=== PATIENT | female | born 1980 | race African-American/Black ===

== ENCOUNTER 2018-01-13 09:38 | Emergency (ER) | payer SELFPAY ==
[~2018-01-13] VITALS: Ht 160 cm; Wt 64.0 kg
[2018-01-13] MEDS ORDERED: ONDANSETRON HCL 4MG/2ML VIAL IV STA (10:31)
[2018-01-13] MEDS ORDERED: SODIUM CHLORIDE 0.9% 1,000 ML IV ONE (10:31)
[2018-01-13] MEDS ORDERED: KETOROLAC 30MG/ML VIAL IV STA (10:31)
[2018-01-13 10:45] LABS: CLARITY URINE CLEAR (CLEAR); COLOR URINE YELLOW (YELLOW); KETONES URINE NEGATIVE (NEGATIVE); LEUKOCYTE ESTERASE URINE NEGATIVE (NEGATIVE); NITRITE URINE NEGATIVE (NEGATIVE); OCCULT BLOOD URINE 1+ (NEGATIVE); PH URINE 5.5 (4.5-8.0); PROTEIN URINE NEGATIVE (NEGATIVE); UROBILINOGEN URINE 0.2 E.U./dL (0.2-1.0)
[2018-01-13 10:56] LABS: BASOPHILS % 0.7 % (0.0-2.0); HEMOGLOBIN. 11.7 g/dL (12.0-16.0); LYMPHOCYTES % 36.4 % (20.0-50.0); MEAN CORPUSCULAR VOLUME 95.5 fL (81.0-99.0); MEAN PLATELET VOLUME 8.1 fl (7.4-10.4); MONOCYTES % 4.3 % (2.0-8.0); NEUTROPHILS % 53.6 % (40.0-76.0); PLATELET 252 x1000/uL (130-400); RED BLOOD CELL COUNT 3.66 mill/uL (4.2-5.4); RED CELL DISTRIBUTION WIDTH 13.2 % (11.6-14.6)
[2018-01-13 11:03] LABS: CHLORIDE 106 mEq/L (98-107)
[2018-01-13 13:10] VITALS: BP 99/64
== END 2018-01-13 13:15 | disposition home or self-care (01) ==
LOC: ER 12:33
DX: R55 Syncope and collapse (principal); R10.2 Pelvic and perineal pain; S01.511A Laceration without foreign body of lip, initial encounter; D64.9 Anemia, unspecified; Z90.49 Acquired absence of other specified parts of digestive tract; W18.11XA Fall from or off toilet without subsequent striking against object, initial encounter; Y93.89 Activity, other specified; Y92.012 Bathroom of single-family (private) house as the place of occurrence of the external cause
CPT/HCPCS: 36415; 80053; 81003; 81025; 85025; 93005; 96361; 96374; 96375; 99285; J1885; J2405; J7030; Z7610

== ENCOUNTER 2019-04-09 11:15 | Emergency (ER) | payer MEDICAID ==
[~2019-04-09] VITALS: Ht 152.4 cm; Wt 71.0 kg
[2019-04-09] MEDS ORDERED: HYDROCODONE/ACETAMINOPHEN 5/325MG TABLET PO ONE (13:15)
[2019-04-09 15:10] VITALS: BP 110/54
== END 2019-04-09 15:11 | disposition home or self-care (01) ==
LOC: ER 11:15
DX: M54.41 Lumbago with sciatica, right side (principal)
CPT/HCPCS: 93971; 99284

== ENCOUNTER 2019-07-02 11:05 | Emergency (ER) | payer MEDICAID ==
[~2019-07-02] VITALS: Ht 152.4 cm; Wt 64.0 kg
[2019-07-02] MEDS ORDERED: KETOROLAC 60MG/2ML VIAL IM ONE (12:15)
[2019-07-02 12:21] VITALS: BP 111/65
== END 2019-07-02 12:27 | disposition home or self-care (01) ==
LOC: ER 11:05
DX: S46.911A Strain of unspecified muscle, fascia and tendon at shoulder and upper arm level, right arm, initial encounter (principal); S86.811A Strain of other muscle(s) and tendon(s) at lower leg level, right leg, initial encounter; S39.012A Strain of muscle, fascia and tendon of lower back, initial encounter; V43.52XA Car driver injured in collision with other type car in traffic accident, initial encounter; Y93.89 Activity, other specified; Y92.410 Unspecified street and highway as the place of occurrence of the external cause
CPT/HCPCS: 96372; 99283; J1885

== ENCOUNTER 2020-11-03 13:33 | Emergency (ER) | payer MEDICAID ==
[~2020-11-03] VITALS: Ht 154.9 cm; Wt 70.0 kg
[2020-11-03] MEDS ORDERED: KETOROLAC 60MG/2ML VIAL IM ONE (14:30)
[2020-11-03 14:50] LABS: CLARITY URINE CLEAR (CLEAR); COLOR URINE YELLOW (YELLOW); KETONES URINE NEGATIVE (NEGATIVE); LEUKOCYTE ESTERASE URINE NEGATIVE (NEGATIVE); NITRITE URINE NEGATIVE (NEGATIVE); OCCULT BLOOD URINE 2+ (NEGATIVE); PROTEIN URINE NEGATIVE (NEGATIVE); SPECIFIC GRAVITY URINE 1.025 (1.005-1.030)
[2020-11-03 15:32] LABS: BASOPHILS % 0.6 % (0.0-2.0); EOSINOPHILS % 7.2 % (0.0-5.0); HEMATOCRIT. 37.2 % (36.0-48.0); HEMOGLOBIN. 12.5 g/dL (12.0-16.0); LYMPHOCYTES % 26.3 % (20.0-50.0); MEAN CORPUSCULAR HEMOGLOBIN 32.5 pg (28.0-32.0); MEAN CORPUSCULAR VOLUME 96.5 fL (81.0-99.0); MEAN PLATELET VOLUME 8.3 fl (7.4-10.4); MONOCYTES % 6.5 % (2.0-8.0); NEUTROPHILS % 59.4 % (40.0-76.0); PLATELET 322 x1000/uL (130-400); RED BLOOD CELL COUNT 3.85 mill/uL (4.2-5.4); RED CELL DISTRIBUTION WIDTH 14.2 % (11.6-14.6)
[2020-11-03 15:39] LABS: CHLORIDE 108 mEq/L (98-107)
[2020-11-03] MEDS ORDERED: METH-773 MT (16:44)
[2020-11-03] MEDS ORDERED: NAPR-681 MT (16:44)
[2020-11-03] MEDS ORDERED: METHOCARBAMOL 500MG TABLET PO ONE (16:45)
[2020-11-03 17:02] VITALS: BP 117/79
== END 2020-11-03 17:03 | disposition home or self-care (01) ==
LOC: ER 13:33
DX: S29.012A Strain of muscle and tendon of back wall of thorax, initial encounter (principal); Z90.49 Acquired absence of other specified parts of digestive tract; X50.1XXA Overexertion from prolonged static or awkward postures, initial encounter; Y93.89 Activity, other specified; Y92.018 Other place in single-family (private) house as the place of occurrence of the external cause
CPT/HCPCS: 36415; 74176; 80053; 81003; 81025; 85025; 96372; 99284; J1885

== ENCOUNTER 2024-03-10 10:41 | Inpatient (IN) | payer MEDICAID ==
[~2024-03-10] VITALS: Ht 152.4 cm; Wt 75.5 kg
[2024-03-10] MEDS: SODIUM CHLORIDE 0.9% 1,000 ML IV SCH (07:15)
[~2024-03-10 10:41] MED LIST: LEVO750T68 MT; METH-773 MT; NAPR-681 MT
[2024-03-10] MEDS ORDERED: KETOROLAC 30MG/ML VIAL IV STA (11:42)
[2024-03-10] MEDS ORDERED: ONDANSETRON HCL 4MG/2ML INJ IV STA (11:42)
[2024-03-10 11:54] LABS: HEMATOCRIT. 35.8 % (36.0-48.0); HEMOGLOBIN. 11.5 g/dL (12.0-16.0); MEAN CORPUSCULAR HEMOGLOBIN 31.2 pg (28.0-32.0); MEAN CORPUSCULAR VOLUME 97.4 fL (81.0-99.0); PLATELET 276 x1000/uL (130-400); RED BLOOD CELL COUNT 3.68 mill/uL (4.2-5.4); RED CELL DISTRIBUTION WIDTH 13.5 % (11.6-14.6); WHITE BLOOD COUNT 15.3 x1000/uL (4.5-11.0)
[2024-03-10 11:57] LABS: DIFFERENTIAL COMMENT 1
[2024-03-10 11:59] LABS: CHLORIDE 100 mEq/L (98-107); SODIUM 134 mEq/L (136-145)
[2024-03-10 12:00] LABS: CALCIUM 9.2 mg/dL (8.7-10.4); CARBON DIOXIDE 22 mEq/L (21-32)
[2024-03-10 12:05] LABS: CREATININE 0.8 mg/dL (0.6-1.0); GLUCOSE 96 mg/dL (70-105)
[2024-03-10 12:07] LABS: ALANINE AMINOTRANSFERASE 11 IU/L (10-49); ALBUMIN 4.6 g/dL (3.2-4.8); ASPARTATE AMINOTRANSFERASE 16 IU/L (<34); BILIRUBIN DIRECT 0.4 mg/dL (<=3.0); BILIRUBIN TOTAL 1.1 mg/dL (0.1-1.0)
[2024-03-10 12:11] LABS: UREA NITROGEN BLOOD < 5 mg/dL (9-23)
[2024-03-10 12:12] LABS: POTASSIUM 2.6 mEq/L (3.5-5.1)
[2024-03-10] MEDS ORDERED: KCL 10MEQ/50ML PREMIX 50 ML IV SCH (13:00)
[2024-03-10] MEDS: SODIUM CHLORIDE 0.9% 1,000 ML IV ONE (13:34)
[2024-03-10 13:37] LABS: CLARITY URINE TURBID (CLEAR); COLOR URINE YELLOW (YELLOW); GLUCOSE URINE NEGATIVE (NEGATIVE); KETONES URINE 3+ (NEGATIVE); LEUKOCYTE ESTERASE URINE 3+ (NEGATIVE); NITRITE URINE NEGATIVE (NEGATIVE); OCCULT BLOOD URINE 3+ (NEGATIVE); PROTEIN URINE 2+ (NEGATIVE); SPECIFIC GRAVITY URINE 1.014 (1.005-1.030)
[2024-03-10 14:03] LABS: SQUAMOUS EPITHELIAL CELL URINE 1+ /lpf (RARE/1+)
[2024-03-10 14:04] LABS: BACTERIA URINE 4+; WBC URINE TNTC /hpf (0-2)
[2024-03-10 14:22] LABS: PLATELET ESTIMATE NORMAL
[2024-03-10] MEDS: ONDANSETRON HCL 4MG/2ML INJ IV NR (14:45)
[2024-03-10] MEDS: KETOROLAC 30MG/ML VIAL IV NR (14:45)
[2024-03-10] MEDS ORDERED: IPRATROPIUM/ALBUTEROL 0.5-3(2.5)MG/3ML NEB HHN PRN (15:15)
[2024-03-10] MEDS ORDERED: MAGNESIUM/ALUMINUM HYDROXIDE/SIMETHICONE 30ML UDC PO PRN (15:15)
[2024-03-10] MEDS: POTASSIUM CHLORIDE 20MEQ TABLET SR PO NR (16:10)
[2024-03-10 16:12] LABS: INR 1.1; PROTHROMBIN TIME 12.3 sec (9.6-11.0)
[2024-03-10] MEDS ORDERED: POTASSIUM CHLORIDE 40 MEQ in DEXT 5% WATER 230 ML IV ONE (16:15)
[2024-03-10] MEDS: CEFTRIAXONE 1GM/50ML 50 ML IV NR (16:25)
[2024-03-10] MEDS: PANTOPRAZOLE SODIUM 40 MG/VIAL IV SCH (16:37)
[2024-03-10 18:00] LABS: CARBON DIOXIDE 23 mEq/L (21-32); CHLORIDE 104 mEq/L (98-107); HCG SCREEN NEGATIVE; SODIUM 133 mEq/L (136-145)
[2024-03-10 18:01] LABS: CALCIUM 8.2 mg/dL (8.7-10.4)
[2024-03-10 18:05] LABS: CREATININE 0.8 mg/dL (0.6-1.0); GLUCOSE 91 mg/dL (70-105); IRON 17 ug/dL (50-170)
[2024-03-10 18:08] LABS: PHOSPHORUS 3.2 mg/dL (2.5-4.9); TOTAL IRON BINDING CAPACITY 449 ug/dl (250-425)
[2024-03-10 18:11] LABS: UREA NITROGEN BLOOD < 5 mg/dL (9-23)
[2024-03-10] MEDS: SODIUM CHLORIDE 0.9% 1000ML BAG (SEPSIS BOLUS) IV ONE (18:17)
[2024-03-10] MEDS: KCL 20MEQ/100ML X 2 FOR TOTAL KCL 40MEQ/200ML IV SCH (18:18)
[2024-03-10 18:21] LABS: FERRITIN 59 ng/mL (10-291); FOLIC ACID (FOLATE) SERUM 17.66 ng/mL (>5.38); VITAMIN B12 SERUM 326 pg/mL (211-911)
[2024-03-10] MEDS: KETOROLAC 30MG/ML VIAL IV PRN (20:07)
[2024-03-10] MEDS: ACETAMINOPHEN 325MG TABLET PO PRN (20:07)
[2024-03-10] MEDS ORDERED: POTASSIUM CHLORIDE 20MEQ/PACKET PO NR (20:30)
[2024-03-10] MEDS: MAGNESIUM 4 G PREMIX 100 ML IV NR (21:41)
[2024-03-10 21:45] VITALS: BP 105/62; PULSE 99; RESP 18; TEMP 37.503; O2SAT 97
[2024-03-10 21:46] VITALS: BP 105/62; PULSE 99; RESP 18; TEMP 37.53
[2024-03-11] VITALS: BP 100/77; PULSE 82; RESP 20; TEMP 36.55848; O2SAT 98
[2024-03-11 00:53] LABS: CREATINE KINASE 78 IU/L (34-145)
[2024-03-11 04:00] VITALS: BP 124/52; PULSE 102; RESP 20; TEMP 36.55848; O2SAT 97
[2024-03-11 07:17] LABS: CHLORIDE 105 mEq/L (98-107)
[2024-03-11 07:18] LABS: CALCIUM 8.6 mg/dL (8.7-10.4); CARBON DIOXIDE 22 mEq/L (21-32); POTASSIUM 3.7 mEq/L (3.5-5.1); SODIUM 138 mEq/L (136-145)
[2024-03-11 07:23] LABS: CREATININE 0.9 mg/dL (0.6-1.0); GLUCOSE 109 mg/dL (70-105)
[2024-03-11 07:24] LABS: LDL CHOLESTEROL 63 mg/dL (5-100); T4 FREE 0.86 ng/dL (0.89-1.76); TRIGLYCERIDE 88 mg/dL (0-150); UREA NITROGEN BLOOD 6 mg/dL (9-23)
[2024-03-11 07:25] LABS: CHOLESTEROL 122 mg/dL (<200); CREATINE KINASE 78 IU/L (34-145); THYROID STIMULATING HORMONE 0.44 uIU/mL (0.55-4.78)
[2024-03-11 07:26] LABS: HDL CHOLESTEROL 38 mg/dL (>65); PHOSPHORUS 2.2 mg/dL (2.5-4.9)
[2024-03-11] MEDS: FERROUS SULFATE 325MG TABLET PO SCH (07:40)
[2024-03-11 07:44] LABS: HEMATOCRIT. 33.8 % (36.0-48.0); HEMOGLOBIN. 11.2 g/dL (12.0-16.0); MEAN CORPUSCULAR HEMOGLOBIN 31.9 pg (28.0-32.0); MEAN CORPUSCULAR VOLUME 96.5 fL (81.0-99.0); MEAN PLATELET VOLUME 9.1 fl (7.4-10.4); PLATELET 300 x1000/uL (130-400); RED BLOOD CELL COUNT 3.51 mill/uL (4.2-5.4); RED CELL DISTRIBUTION WIDTH 13.9 % (11.6-14.6); WHITE BLOOD COUNT 21.2 x1000/uL (4.5-11.0)
[2024-03-11 07:52] LABS: DIFFERENTIAL COMMENT 1
[2024-03-11 08:00] VITALS: BP 131/72; PULSE 102; RESP 20; TEMP 36.44736; O2SAT 100
[2024-03-11 12:00] VITALS: BP 131/72; PULSE 81; RESP 20; TEMP 36.55848; O2SAT 100
[2024-03-11] MEDS: CEFTRIAXONE 2GM/50ML 50 ML IV SCH (15:37)
[2024-03-11 16:00] VITALS: BP 105/63; PULSE 86; RESP 20; TEMP 36.72516; O2SAT 99
[2024-03-11 20:00] VITALS: BP 107/58; PULSE 82; RESP 20; TEMP 37.503; O2SAT 97
[2024-03-11] MEDS: HYDROCODONE/ACETAMINOPHEN 5/325MG TABLET PO NR (21:40)
[2024-03-11 22:26] LABS: PLATELET ESTIMATE NORMAL
[2024-03-12] VITALS: BP 101/59; PULSE 90; RESP 18; TEMP 35.66952; O2SAT 100
[2024-03-12 04:00] VITALS: BP 103/69; PULSE 76; RESP 18; TEMP 36.50292; O2SAT 100
[2024-03-12 05:39] LABS: CHLORIDE 107 mEq/L (98-107); POTASSIUM 3.5 mEq/L (3.5-5.1); SODIUM 135 mEq/L (136-145)
[2024-03-12 05:40] LABS: CALCIUM 7.7 mg/dL (8.7-10.4); CARBON DIOXIDE 21 mEq/L (21-32)
[2024-03-12 05:45] LABS: CREATININE 0.7 mg/dL (0.6-1.0); GLUCOSE 95 mg/dL (70-105); UREA NITROGEN BLOOD 7 mg/dL (9-23)
[2024-03-12 05:47] LABS: PHOSPHORUS 2.2 mg/dL (2.5-4.9)
[2024-03-12 05:51] LABS: HEMATOCRIT 25.2 % (36.0-48.0); HEMOGLOBIN 8.2 g/dL (12.0-16.0); MEAN CORPUSCULAR HEMOGLOBIN 32.1 pg (28.0-32.0); MEAN CORPUSCULAR HGB CONC 32.6 g/dL (31.0-37.0); MEAN CORPUSCULAR VOLUME 98.5 fL (81.0-99.0); PLATELET 264 x1000/uL (130-400); RED BLOOD CELL COUNT 2.56 mill/uL (4.2-5.4); RED CELL DISTRIBUTION WIDTH 13.6 % (11.6-14.6); WHITE BLOOD COUNT 14.5 x1000/uL (4.5-11.0)
[2024-03-12 08:00] VITALS: BP 104/66; PULSE 83; RESP 18; TEMP 36.16956; O2SAT 100
[2024-03-12 12:00] VITALS: BP 106/61; PULSE 79; RESP 18; TEMP 36.50292; O2SAT 98
[2024-03-12 16:00] VITALS: BP 97/58; PULSE 78; RESP 18; TEMP 36.55848; O2SAT 97
[2024-03-12] MEDS: ONDANSETRON HCL 4MG/2ML INJ IV PRN (17:52)
[2024-03-12 19:44] LABS: BASOPHILS % 0.4 % (0.0-2.0); EOSINOPHILS % 1.3 % (0.0-5.0); HEMATOCRIT. 32.1 % (36.0-48.0); HEMOGLOBIN. 10.3 g/dL (12.0-16.0); MEAN CORPUSCULAR HEMOGLOBIN 31.2 pg (28.0-32.0); MEAN CORPUSCULAR HGB CONC 32.2 g/dL (31.0-37.0); MEAN PLATELET VOLUME 9.1 fl (7.4-10.4); MONOCYTES % 5.4 % (2.0-8.0); NEUTROPHILS % 80.9 % (40.0-76.0); PLATELET 249 x1000/uL (130-400); RED BLOOD CELL COUNT 3.31 mill/uL (4.2-5.4); RED CELL DISTRIBUTION WIDTH 14.1 % (11.6-14.6); WHITE BLOOD COUNT 11.9 x1000/uL (4.5-11.0)
[2024-03-12 20:01] LABS: CHLORIDE 107 mEq/L (98-107); POTASSIUM 3.3 mEq/L (3.5-5.1); SODIUM 135 mEq/L (136-145)
[2024-03-12 20:02] LABS: CALCIUM 8.1 mg/dL (8.7-10.4); CARBON DIOXIDE 21 mEq/L (21-32)
[2024-03-12 20:07] LABS: CREATININE 0.6 mg/dL (0.6-1.0); GLUCOSE 87 mg/dL (70-105); UREA NITROGEN BLOOD 5 mg/dL (9-23)
[2024-03-12 20:09] LABS: ALANINE AMINOTRANSFERASE 9 IU/L (10-49); ALBUMIN 3.7 g/dL (3.2-4.8); ASPARTATE AMINOTRANSFERASE 13 IU/L (<34); BILIRUBIN TOTAL 0.4 mg/dL (0.1-1.0); PROTEIN TOTAL 6.5 g/dL (6.0-8.3)
[2024-03-12] MEDS: KETOROLAC 15MG/ML VIAL IV PRN (20:58)
[2024-03-13 06:08] LABS: CALCIUM 7.7 mg/dL (8.7-10.4); CARBON DIOXIDE 20 mEq/L (21-32); CHLORIDE 108 mEq/L (98-107); SODIUM 137 mEq/L (136-145)
[2024-03-13 06:13] LABS: CREATININE 0.6 mg/dL (0.6-1.0); GLUCOSE 78 mg/dL (70-105)
[2024-03-13 06:15] LABS: UREA NITROGEN BLOOD 7 mg/dL (9-23)
[2024-03-13 06:20] LABS: HEMATOCRIT 28.3 % (36.0-48.0); HEMOGLOBIN 9.2 g/dL (12.0-16.0); MEAN CORPUSCULAR HEMOGLOBIN 31.5 pg (28.0-32.0); MEAN CORPUSCULAR HGB CONC 32.7 g/dL (31.0-37.0); MEAN CORPUSCULAR VOLUME 96.3 fL (81.0-99.0); PLATELET 243 x1000/uL (130-400); RED BLOOD CELL COUNT 2.93 mill/uL (4.2-5.4); RED CELL DISTRIBUTION WIDTH 14.1 % (11.6-14.6); WHITE BLOOD COUNT 9.9 x1000/uL (4.5-11.0)
[2024-03-13 07:56] VITALS: BP 110/73; PULSE 79; RESP 20; TEMP 36.28068; O2SAT 98
[2024-03-13 09:37] LABS: THYROID STIMULATING HORMONE 0.86 uIU/mL (0.55-4.78)
[2024-03-13] MEDS: POTASSIUM-SODIUM PHOSPHATE POWDER PACKET PO NR (10:07)
[2024-03-13] MEDS: KCL 20MEQ/100ML PREMIX 100 ML IV SCH (10:07)
[2024-03-13] MEDS ORDERED: CIPR500S3 MT (10:54)
[2024-03-13 12:00] VITALS: BP 99/66; PULSE 73; RESP 18; TEMP 36.72516; O2SAT 98
[2024-03-13 14:33] VITALS: BP 116/78; PULSE 88; TEMP 97.8; O2SAT 98
[2024-03-13 16:00] VITALS: BP 102/57; PULSE 77; RESP 20; TEMP 36.61404; O2SAT 97
[2024-03-13] MEDS ORDERED: POTASSIUM CHLORIDE 20MEQ/PACKET PO NR (16:30)
== END 2024-03-13 18:35 | disposition home or self-care (01) | DRG 720 ==
LOC: ER 10:41 → 5WST 14:04 → EDBEDREQ 14:08 → EDBEDREQTM 14:08 → 8WST 20:59
PROVIDERS: ADMIT Internal Medicine; ATTEND Internal Medicine
DX: A41.9 Sepsis, unspecified organism (principal); N12 Tubulo-interstitial nephritis, not specified as acute or chronic; E87.6 Hypokalemia; E78.5 Hyperlipidemia, unspecified; N39.0 Urinary tract infection, site not specified; D64.9 Anemia, unspecified; E80.6 Other disorders of bilirubin metabolism; N28.81 Hypertrophy of kidney; Z90.49 Acquired absence of other specified parts of digestive tract; Z79.899 Other long term (current) drug therapy
CPT/HCPCS: 36415; 71045; 74176; 74177; 76705; 80048; 80053; 80061; 80076; 81003; 82550; 82607; 82728; 82746; 83540; 83550; 83605; 83735; 84100; 84145; 84439; 84443; 84481; 84703; 85025; 85027; 87077; 87186; 93005; 99285; C1893; J0696; J1885; J2405; J2470; J3475; J3480; J7030

== ENCOUNTER 2024-07-10 12:52 | Emergency (ER) | payer MEDICAID ==
[~2024-07-10] VITALS: Ht 154.9 cm; Wt 68.0 kg
[~2024-07-10 12:52] MED LIST changes: +CIPR500S3 MT; -LEVO750T68 MT; -METH-773 MT
[2024-07-10 13:03] VITALS: BP 115/86; RESP 18; O2SAT 100
[2024-07-10 13:07] VITALS: PULSE 105; O2SAT 100
[2024-07-10 14:00] VITALS: TEMP 98.6
[2024-07-10] MEDS: ACETAMINOPHEN 325MG TABLET PO ONE (14:00)
[2024-07-10] MEDS ORDERED: D-ME473S50 PO (15:31)
[2024-07-10] MEDS ORDERED: ACET-3800 MT (15:31)
== END 2024-07-10 16:18 | disposition home or self-care (01) ==
LOC: ER 12:52
DX: J06.9 Acute upper respiratory infection, unspecified (principal); Z98.890 Other specified postprocedural states; Z20.822 Contact with and (suspected) exposure to COVID-19
CPT/HCPCS: 87426; 87804; 99283

== ENCOUNTER 2024-09-07 01:42 | Emergency (ER) | payer MEDICAID ==
[~2024-09-07] VITALS: Ht 154.9 cm; Wt 68.0 kg
[~2024-09-07 01:42] MED LIST changes: +ACET-3800 MT; +D-ME473S50 PO
[2024-09-07 02:13] VITALS: O2SAT 99
[2024-09-07 02:15] VITALS: BP 121/76; PULSE 60; RESP 18; TEMP 36.9; O2SAT 99
[2024-09-07] MEDS: MECLIZINE 25MG TABLET PO ONE (02:43)
[2024-09-07] MEDS: ONDANSETRON HCL 4MG TABLET PO ONE (02:43)
[2024-09-07 02:47] LABS: BASOPHILS % 0.5 % (0.0-2.0); EOSINOPHILS % 0.7 % (0.0-5.0); HEMATOCRIT. 38.9 % (36.0-48.0); HEMOGLOBIN. 12.9 g/dL (12.0-16.0); LYMPHOCYTES % 19.3 % (20.0-50.0); MEAN CORPUSCULAR HEMOGLOBIN 31.9 pg (28.0-32.0); MEAN CORPUSCULAR HGB CONC 33.2 g/dL (31.0-37.0); MEAN CORPUSCULAR VOLUME 96.1 fL (81.0-99.0); MONOCYTES % 3.2 % (2.0-8.0); NEUTROPHILS % 76.3 % (40.0-76.0); RED BLOOD CELL COUNT 4.05 mill/uL (4.2-5.4); RED CELL DISTRIBUTION WIDTH 14.6 % (11.6-14.6); WHITE BLOOD COUNT 8.8 x1000/uL (4.5-11.0)
[2024-09-07 02:53] LABS: DIFFERENTIAL COMMENT 1
[2024-09-07 03:14] LABS: CHLORIDE 109 mEq/L (98-107); POTASSIUM 3.6 mEq/L (3.5-5.1); SODIUM 144 mEq/L (136-145)
[2024-09-07 03:15] LABS: CALCIUM 9.3 mg/dL (8.7-10.4); CARBON DIOXIDE 25 mEq/L (21-32)
[2024-09-07 03:20] LABS: CREATININE 0.8 mg/dL (0.6-1.0); GLUCOSE 103 mg/dL (70-105); UREA NITROGEN BLOOD 7 mg/dL (9-23)
[2024-09-07 03:22] LABS: ALANINE AMINOTRANSFERASE 9 IU/L (10-49); ALBUMIN 4.5 g/dL (3.2-4.8); ASPARTATE AMINOTRANSFERASE 17 IU/L (<34); BILIRUBIN DIRECT 0.1 mg/dL (<=3.0); BILIRUBIN TOTAL 0.5 mg/dL (0.1-1.0); PROTEIN TOTAL 8.2 g/dL (6.0-8.3)
[2024-09-07] MEDS ORDERED: ONDA4TAB50 MT (03:49)
[2024-09-07] MEDS ORDERED: MECL-217 MT (03:49)
[2024-09-07 05:55] LABS: PLATELET 238 x1000/uL (130-400)
== END 2024-09-07 04:12 | disposition home or self-care (01) ==
LOC: ER 01:42
DX: B34.9 Viral infection, unspecified (principal); E87.8 Other disorders of electrolyte and fluid balance, not elsewhere classified; Z79.899 Other long term (current) drug therapy
CPT/HCPCS: 99283; 80076; 80048; 83690; 85025; 36415; J8597; Q0162

== ENCOUNTER 2024-10-26 11:42 | Emergency (ER) | payer MEDICAID ==
[~2024-10-26] VITALS: Ht 154.9 cm; Wt 70.0 kg
[~2024-10-26 11:42] MED LIST changes: +MECL-217 MT; +ONDA4TAB50 MT
[2024-10-26 11:45] VITALS: O2SAT 100
[2024-10-26 11:49] VITALS: BP 126/75; PULSE 67; RESP 18; O2SAT 100
[2024-10-26] MEDS: KETOROLAC 15MG/ML VIAL IM ONE (13:10)
[2024-10-26] MEDS: LIDOCAINE 5% PATCH TOP SCH (13:10)
[2024-10-26] MEDS: ACETAMINOPHEN 325MG TABLET PO ONE (13:10)
[2024-10-26] MEDS ORDERED: LIDO1ADH16 TP (14:12)
== END 2024-10-26 14:41 | disposition home or self-care (01) ==
LOC: ER 11:42
DX: S29.019A Strain of muscle and tendon of unspecified wall of thorax, initial encounter (principal); Z90.49 Acquired absence of other specified parts of digestive tract; Z79.1 Long term (current) use of non-steroidal anti-inflammatories (NSAID); Z79.899 Other long term (current) drug therapy; W10.9XXA Fall (on) (from) unspecified stairs and steps, initial encounter; Y93.89 Activity, other specified; Y92.89 Other specified places as the place of occurrence of the external cause; Y99.8 Other external cause status
CPT/HCPCS: 99284; 81025; 71101; 73560; 96372; J1885